=== PATIENT | male | born 1950 | race Caucasian/White ===

== ENCOUNTER → 2016-06-28 | Outpatient (CLI) | payer MEDICARE, OTHER ==
[~2016-06-28] MED LIST: AMMONIUM LACTA140 GM TP; ASPIR 8181 MG PO; ASPIRIN325 MG PO; BETADINE OINT 101 GM TOP; BRILINTA90 MG PO; GLUCOPHAGE500 MG PO; INVANZ1 GM IV; LEVEMIR FL100 UNIT/1 SQ; LIPITOR TAB 2020 MG PO; LISINOPRIL20 MG PO; NEURONTIN 400400 MG PO; NEURONTIN600 MG PO; NOVOLOG 10100 UNITS/ SC; NOVOLOG FL100 UNIT/1 SQ; PERCOCET 10-321 EACH PO; VITAMIN C 500500 MG PO; VITAMIN D35000 UNI1 PO; ZYVOX600 MG PO; [UNRECOGNIZED DRUG - OTHER] PO
[2016-06-28 12:56] LABS: HEMOGLOBIN 14.3 gm/dl (14.0-17.5); RED BLOOD COUNT 4.78 M/UL (4.20-5.50); WHITE BLOOD COUNT 6.6 K/UL (4.5-11.0)
[2016-06-28 13:13] LABS: BUN/CREATININE RATIO 33 (0-10)
== END ==
LOC: OPSV 09:00
PROVIDERS: Internal Medicine Infectious Disease
DX: M86.9 Osteomyelitis, unspecified (principal)
CPT/HCPCS: 36592; 80053; 85025; 86140; G0463

== ENCOUNTER → 2016-07-20 | Outpatient (CLI) | payer MEDICARE ==
[2016-07-20 13:13] LABS: HEMOGLOBIN 14.8 gm/dl (14.0-17.5); RED BLOOD COUNT 4.96 M/UL (4.20-5.50); WHITE BLOOD COUNT 6.7 K/UL (4.5-11.0)
== END ==
LOC: LAB 12:08
PROVIDERS: Nurse Practitioner
DX: M86.9 Osteomyelitis, unspecified (principal)
CPT/HCPCS: 36415; 85027; 86140

== ENCOUNTER → 2020-06-18 | Outpatient (CLI) | payer MEDICARE, OTHER ==
[~2020-06-18] MED LIST changes: +ALDACTONE50 MG PO; +AMLODIPINE BESY10 MG PO; +ASPIRIN 325MG325 MG PO; +BENZONATATE100 MG PO; +BETADINE 10%; -BETADINE OINT 101 GM TOP; +CILOSTAZOL50 MG PO; +COLACE100 MG PO; +CRESTOR20 MG PO; +CYMBALTA 30 MG30 MG PO; +ELAVIL 25 MG TA25 MG PO; +FLOMAX 0.4 MG0.4 MG PO; +GLUCOTROL XL5 MG PO; +IMDUR ER TAB 3030 MG PO; +JANUVIA 100 MG100 MG PO; +LASIX40 MG PO; +LEVAQUIN750 MG PO; +LEVEMIR100 UNIT/1 SQ; +LOPRESSOR 25 MG25 MG PO; +NITROSTAT0.4 MG SL; +PERCOCET 5-3251 EACH PO; +PLAVIX 75 MG TA75 MG PO; +PROTONIX 20 MG20 MG PO; +PROTONIX40 MG PO; +RESTORIL 15 MG15 MG PO
[2020-06-18 16:37] LABS: HEMOGLOBIN 12.5 gm/dl (14.0-17.5); RED BLOOD COUNT 4.24 M/UL (4.20-5.50); WHITE BLOOD COUNT 6.8 K/UL (4.5-11.0)
[2020-06-24 15:14] LABS: AMPHETAMINES, URINE Negative ng/mL (Cutoff=1000); BARBITURATE Negative ng/mL (Cutoff=200); BENZODIAZEPINES Negative ng/mL (Cutoff=200); CANNABINOIDS Negative ng/mL (Cutoff=20); COCAINE (METABOLITE) Negative ng/mL (Cutoff=300); CREATININE 65.5 mg/dL (20.0-300.0); MEPERIDINE Negative ng/mL (Cutoff=200); METHADONE Negative ng/mL (Cutoff=300); OPIATES Negative ng/mL (Cutoff=300); OPIATES See Final Results ng/mL (Cutoff=300); OXYCODONE Positive (.); OXYCODONE (GC/MS) 2120 ng/mL (Cutoff=300); OXYCODONE/OXYMORPH Positive (Cutoff=300); OXYMORPHONE Positive (.); OXYMORPHONE (GC/MS) 1590 ng/mL (Cutoff=300); PHENCYCLIDINE Negative ng/mL (Cutoff=25); PROPOXYPHENE Negative ng/mL (Cutoff=300)
== END ==
LOC: LAB 15:43
PROVIDERS: Family Medicine
DX: E11.65 Type 2 diabetes mellitus with hyperglycemia (principal); R60.9 Edema, unspecified; I50.9 Heart failure, unspecified; R05 Cough; M54.2 Cervicalgia; E78.5 Hyperlipidemia, unspecified; N40.0 Benign prostatic hyperplasia without lower urinary tract symptoms; E55.9 Vitamin D deficiency, unspecified; Z89.9 Acquired absence of limb, unspecified; Z79.899 Other long term (current) drug therapy
CPT/HCPCS: 80053; 80061; 80307; 83036; 84153; 85025

== ENCOUNTER → 2020-10-20 | Outpatient (CLI) | payer MEDICARE, OTHER ==
[2020-10-20 12:45] LABS: HEMOGLOBIN 14.1 gm/dl (14.0-17.5); RED BLOOD COUNT 4.68 M/UL (4.20-5.50); WHITE BLOOD COUNT 8.4 K/UL (4.5-11.0)
[2020-10-25 08:14] LABS: AMPHETAMINES, URINE Negative ng/mL (Cutoff=1000); BARBITURATE Negative ng/mL (Cutoff=200); BENZODIAZEPINES Negative ng/mL (Cutoff=200); CANNABINOIDS Negative ng/mL (Cutoff=20); COCAINE (METABOLITE) Negative ng/mL (Cutoff=300); CREATININE 107.5 mg/dL (20.0-300.0); MEPERIDINE Negative ng/mL (Cutoff=200); METHADONE Negative ng/mL (Cutoff=300); OPIATES Negative ng/mL (Cutoff=300); OPIATES See Final Results ng/mL (Cutoff=300); OXYCODONE Positive (.); OXYCODONE (GC/MS) 2216 ng/mL (Cutoff=300); OXYCODONE/OXYMORPH Positive (Cutoff=300); OXYMORPHONE Positive (.); OXYMORPHONE (GC/MS) 2519 ng/mL (Cutoff=300); PHENCYCLIDINE Negative ng/mL (Cutoff=25); PROPOXYPHENE Negative ng/mL (Cutoff=300)
== END ==
LOC: LAB 11:21
PROVIDERS: Family Medicine
DX: E11.9 Type 2 diabetes mellitus without complications (principal); Z79.899 Other long term (current) drug therapy
CPT/HCPCS: 36415; 80053; 80061; 80307; 83036; 85025

== ENCOUNTER → 2021-04-29 | Outpatient (CLI) | payer MEDICARE, OTHER ==
[2021-04-29 13:12] LABS: RED BLOOD COUNT 4.79 M/UL (4.20-5.50); WHITE BLOOD COUNT 6.4 K/UL (4.5-11.0)
[2021-04-30 08:13] LABS: PROSTATE SPECIFIC AG, SERUM 0.5 ng/mL (0.0-4.0); PSA, FREE 0.14 ng/mL
== END ==
LOC: LAB 11:22
PROVIDERS: Family Medicine
DX: Z00.00 Encounter for general adult medical examination without abnormal findings (principal); R33.9 Retention of urine, unspecified; N30.00 Acute cystitis without hematuria; E78.5 Hyperlipidemia, unspecified; E11.65 Type 2 diabetes mellitus with hyperglycemia; Z79.899 Other long term (current) drug therapy
CPT/HCPCS: 36415; 80053; 80061; 80171; 83036; 84153; 84154; 85025